=== PATIENT | male | born 1995 | race Caucasian/White ===

== ENCOUNTER 2019-09-27 04:37 | Emergency (ER) | payer MEDICAID ==
[~2019-09-27] VITALS: Ht 180.3 cm; Wt 122.9 kg
[2019-09-27 04:56] VITALS: BP 152/91
--- NOTE | 2019-09-27 04:56 | NUR ---
PT AMBULATED TO BED #6
--- NOTE | 2019-09-27 05:00 | NUR ---
PT COMPLETE ASSESSMENT. PT SEATED UPRIGHT IN BED. FAMILY AT BEDSIDE. BEDRAIL X1 UP. FAMILY AT BEDSIDE.
--- NOTE | 2019-09-27 06:35 | NUR ---
DR. LEIVA AT BEDSIDE.
[2019-09-27] MEDS ORDERED: predniSONE 20 MG TAB PO ONE (07:05)
[2019-09-27] MEDS ORDERED: diphenhydrAMINE 50 MG/ML VIAL IM ONE (07:05)
--- NOTE | 2019-09-27 07:06 | NUR ---
BEDSIDE REPORT GIVEN TO DIPTI CANNON. TRANSFER OF CARE AT THIS TIME.
--- NOTE | 2019-09-27 07:14 | NUR ---
RECEIVED REPORT FROM PEDRO MATHIS
[2019-09-27 10:14] VITALS: BP 150/88
--- NOTE | 2019-09-27 10:14 | NUR ---
Patient discharged with v/s stable. Written and verbal after care instructions given and explained regarding cellulitis. Patient alert, oriented and verbalized understanding of instructions. Ambulatory with steady gait. All questions addressed prior to discharge. ID band removed. Patient advised to follow up with PMD. Rx of motrin,keflex,prednisone,benadryl given. Patient educated on indication of medication including possible reaction and side effects. Opportunity to ask questions provided and answered.
== END 2019-09-27 10:14 | disposition home or self-care (01) ==
LOC: MED 04:37
DX: R21 Rash and other nonspecific skin eruption (principal); L03.314 Cellulitis of groin
CPT/HCPCS: 96372; 99283; J1200; J7512

== ENCOUNTER 2020-02-16 20:22 | Emergency (ER) | payer SELFPAY ==
[~2020-02-16] VITALS: Ht 177.8 cm; Wt 117.9 kg
[2020-02-16 20:50] VITALS: BP 130/79
[2020-02-16] MEDS ORDERED: KETOROLAC 30 MG/ML VIAL IM ONE (21:15)
--- NOTE | 2020-02-16 21:30 | NUR ---
24 Y/O MALE PRESENTS TO ER WITH RIGHT NECK ABCESS X 1 WEEK. 8/10 PAIN. DENIES INJURY, SOB, COUGH, NAUSEA, VOMITING, DIARRHEA. AFEBRILE, NO DIFFICULTY SWALLOWING, NO AIRWAY OBSTRUCTION VERBALIZED. R/R EQUAL, AND UNLABORED. VSS. BED IN LOW POSITION, SIDE RAIL X 1, WILL CONTINUE TO MONITOR. DENIES PMH SULFA ALLERGY
[2020-02-16 21:40] LABS: BASOPHILS % (AUTO) 0.4 % (0.0-2.0); EOSINOPHILS # (AUTO) 0.1 K/uL (0-0.4); EOSINOPHILS % (AUTO) 0.9 % (0.0-4.0); HEMATOCRIT 41.2 % (36-52); HEMOGLOBIN 13.5 g/dL (12.0-18.0); LYMPHOCYTES # (AUTO) 2.6 K/uL (2.0-11.5); MEAN CORPUSCULAR HEMOGLOBIN 26 pg (27-31); MEAN CORPUSCULAR HGB CONC 33 g/dL (33-37); MEAN CORPUSCULAR VOLUME 78.8 fL (80-94); MONOCYTES # (AUTO) 0.8 K/uL (0.8-1.0); MONOCYTES % (AUTO) 7.9 % (1.7-9.3); NEUTROPHILS # (AUTO) 6.5 K/uL (1.8-7.7); NEUTROPHILS % (AUTO) 64.8 % (42.2-75.2); PLATELET COUNT (AUTO) 265 K/uL (140-450); RED BLOOD CELL COUNT(AUTO) 5.22 MIL/uL (4.20-6.10); RED CELL DISTRIBUTION WIDTH 13.5 % (11.6-13.7)
[2020-02-16 21:54] LABS: ALBUMIN 4.2 g/dL (3.4-5.0); ANION GAP 10.6 (8-16); CARBON DIOXIDE 29.9 mmol/L (21-32); CREATININE 1.1 mg/dL (0.6-1.3); POTASSIUM 3.5 mmol/L (3.5-5.1); TOTAL BILIRUBIN 0.4 mg/dL (0.0-1.0)
[2020-02-16] MEDS ORDERED: CLINDAMYCIN 600 MG in DEXTROSE 5% 50 ML IV ONE (22:25)
[2020-02-16] MEDS ORDERED: CLINDAMYCIN 600 MG/4 ML VIAL ONE (22:42)
--- NOTE | 2020-02-16 23:56 | NUR ---
PT SIGNED CONSENT FOR IV CONTRAST
--- NOTE | 2020-02-17 00:18 | NUR ---
PT TAKEN TO CT
--- NOTE | 2020-02-17 00:33 | NUR ---
PT RETURN FROM CT
--- NOTE | 2020-02-17 03:34 | NUR ---
[facility] TRANSPORT AT BEDSIDE
--- NOTE | 2020-02-17 03:38 | NUR ---
CALLED [facility], TAYLOR ROSA RN REPORT ABOUT FOR PT.
--- NOTE | 2020-02-17 03:49 | NUR ---
PT TAKEN BY [facility] TRANSPORT TO [facility] ROOM [address]
[2020-02-17 03:50] VITALS: BP 123/98
--- NOTE | 2020-02-17 03:51 | NUR ---
Patient to be transferred to [facility]. Is being transferred due to RIGHT NECK ABSCESS. Receiving facility has accepting physician and available space. ER physician has signed transfer form. Patient or responsible libertarian has agreed to transfer and signed form. Patient belongings inventoried and will be sent with patient. Copy of nursing notes, lab reports, EKG, Physicians Orders and X-rays to be sent with patient. Report called to DIPTI ROSA at receiving facility. [facility] ambulance service has been called for transfer. ETA is NOW.
== END 2020-02-17 03:51 | disposition short-term general hospital (02) ==
LOC: MED 20:22
DX: L02.11 Cutaneous abscess of neck (principal); Z88.2 Allergy status to sulfonamides
CPT/HCPCS: 36415; 70491; 80053; 85025; 87040; 96365; 96366; 96372; 99285; J1885; J3490; Q9967